=== PATIENT | male | born 1970 | race American Indian/Alaskan Native ===

== ENCOUNTER 2017-09-18 14:02 | Inpatient (IN) | payer MEDICARE, OTHER ==
[2017-09-18 14:08] VITALS: BMI 29.0
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
[2017-09-18 15:10] LABS: BASO # 0.02 K/mm3 (0.0-2.0); BASO % 0.3 % (0.0-3.0); EOS # 0.1 (0.0-0.7); EOS % 1.2 % (1.5-5.0); GRAN # 4.46 (1.4-6.5); GRAN % 66.3 % (50.0-68.0); HEMOGLOBIN 13.6 g/dL (14.0-18.0); LYMPH # 1.8 (1.2-3.4); LYMPH % 26.8 % (22.0-35.0); MEAN CELL VOLUME 86.3 fl (80.0-105.0); MEAN CORPUSCULAR HEMOGLOBIN 28.8 pg (25.0-35.0); MEAN CORPUSCULAR HGB CONC 33.3 g/dl (31.0-37.0); MEAN PLATELET VOLUME 9.5 fl (7.0-11.0); MONO # 0.4 (0.1-0.6); MONO % 5.4 % (1.0-6.0); RBC 4.73 10^6/uL (3.5-6.1); RED CELL DISTRIBUTION WIDTH 13.2 % (11.5-14.5); WHITE BLOOD COUNT 6.7 10^3/ul (4.5-11.0)
[2017-09-18 15:27] LABS: ALB/GLOB RATIO 1.2 (1.1-1.8); ALBUMIN 3.9 g/dL (3.0-4.8); ALT/SGPT 43 U/L (7-56); AST/SGOT 26 U/L (17-59); BLOOD UREA NITROGEN 13 mg/dL (7-21); CALCIUM 9.3 mg/dL (8.4-10.5); GFR AFRICAN-AMERICAN > 60; GFR NON-AFRICAN AMERICAN > 60
--- NOTE | 2017-09-18 15:28 | RAD ---
HISTORY: psych COMPARISON: No prior. FINDINGS: LUNGS: No active pulmonary disease. PLEURA: No significant pleural effusion identified, no pneumothorax apparent. CARDIOVASCULAR: Normal. OSSEOUS STRUCTURES: No significant abnormalities. VISUALIZED UPPER ABDOMEN: Normal. OTHER FINDINGS: None. IMPRESSION: No active disease. Concordant results with the preliminary interpretation rendered by the emergency department physician procedure.
[2017-09-18 15:32] LABS: ACETAMINOPHEN < 10.0 ug/ml (10.0-20.0); SALICYLATE < 1 mg/dL (2.0-20.0)
[2017-09-18 16:01] LABS: URINE BILIRUBIN NEGATIVE (NEGATIVE); URINE BLOOD NEGATIVE (NEGATIVE); URINE GLUCOSE (UA) 250 mg/dL (NEGATIVE); URINE LEUKOCYTE ESTERASE NEGATIVE Leu/uL (NEGATIVE); URINE NITRATE NEGATIVE (NEGATIVE); URINE PROTEIN NEGATIVE mg/dL (<30 mg/dL); URINE UROBILINOGEN 0.2 E.U./dL (<1 E.U./dL)
[2017-09-18 16:04] LABS: URINE APPEARANCE CLEAR (CLEAR); URINE COLOR YELLOW (YELLOW)
[2017-09-18 16:22] LABS: BARBITURATES, UR NEGATIVE (NEGATIVE); BENZODIAZEPINES, UR NEGATIVE (NEGATIVE); OPIATES, UR NEGATIVE (NEGATIVE); PHENCYCLIDINE, UR NEGATIVE (NEGATIVE)
--- NOTE | 2017-09-18 17:35 | CARD ---
APPROVED REPORT EKG Measurement Heart [id number] <Conclusion> Normal sinus rhythm ST elevation, consider early repolarization, pericarditis, or injury Nonspecific ST and T wave abnormality Abnormal ECG
--- NOTE | 2017-09-18 20:04 | ED PDOC ---
Physical Exam Vital Signs Reviewed: Yes Vital Signs Temp Pulse Resp BP Pulse Ox 09/19/17 06:07 98.4 F 78 17 130/79 100 09/19/17 00:00 84 16 128/76 99 09/18/17 18:02 98 F 90 18 133/76 98 09/18/17 14:20 98.0 F 110 H 18 136/80 97 Temperature: Afebrile Blood Pressure: Normal Pulse: Regular Respiratory Rate: Normal Appearance: Positive for: Well-Appearing Pain Distress: None Mental Status: Positive for: Alert and Oriented X 3 Finger Stick Blood Glucose: 253 Medical Decision Making ED Course and Treatment: 09/18/17 19:20 Patient signed out to me by Dr. Millan.Pt. with HX. of suicidal ideation/ auditory hallucinations.Medically cleared and evaluated by PES. Currently awaiting bed availability for admission.Pt. resting comfortably.No complaints. 1 09/19/17 06:50 Pt. resting comfortably.No complaints through the night.Still awaiting bed availability.Endorsed to . - Lab Interpretations Lab Results: 09/18/17 12:26 09/18/17 12:26 Lab Results 09/18/17 15:29: Urine Opiates Screen Negative, Urine Methadone Screen Negative, Ur Barbiturates Screen Negative, Ur Phencyclidine Scrn Negative, Ur Amphetamines Screen Negative, U Benzodiazepines Scrn Negative, U Oth Cocaine Metabols Negative, U Cannabinoids Screen Negative 09/18/17 15:29: Urine Color Yellow, Urine Appearance Clear, Urine pH 6.0, Ur Specific [place] 1.025, Urine Protein Negative, Urine Glucose (UA) 250 H, Urine Ketones Negative, Urine Blood Negative, Urine Nitrate Negative, Urine Bilirubin Negative, Urine Urobilinogen 0.2, Ur Leukocyte Esterase Negative 09/18/17 12:26: Alcohol, Quantitative < 10 09/18/17 12:26: Salicylates < 1 L, Acetaminophen < 10.0 L 09/18/17 12:26: Sodium 135, Potassium 4.2, Chloride 98, Carbon Dioxide 23, Anion Gap 18, BUN 13, Creatinine 0.7 L, Est GFR ( Amer) > 60, Est GFR ( Non-Af Amer) > 60, Random Glucose 250 H, Calcium 9.3, Total Bilirubin 0.2, AST 26, ALT 43, Alkaline Phosphatase 78, Total Protein 7.2, Albumin 3.9, Globulin 3.3, Albumin/Globulin Ratio 1.2 09/18/17 12:26: WBC 6.7, RBC 4.73, Hgb 13.6 L, Hct 40.8 L, MCV 86.3, MCH 28.8, MCHC 33.3, RDW 13.2, Plt Count 260, MPV 9.5, Gran % 66.3, Lymph % (Auto) 26.8, [place] % (Auto) 5.4, Eos % (Auto) 1.2 L, Baso % (Auto) 0.3, Gran # 4.46, Lymph # 1.8, [place] # 0.4, Eos # 0.1, Baso # 0.02 - RAD Interpretation Radiology Orders: 09/18/17 14:31 CXR [CHEST PORTABLE] [RAD] Stat Disposition/Present on Arrival - Present on Arrival Any Indicators Present on Arrival: No History of DVT/PE: No History of Uncontrolled Diabetes: No Urinary Catheter: No History of Decub. Ulcer: No History Surgical Site Infection Following: None - Disposition Have Diagnosis and Disposition been Completed?: No Diagnosis: Psychiatric care Disposition Time: 07:00 Patient Problems: Current Active Problems Problem Status Onset Psychiatric care Acute Condition: FAIR Referrals: Stellar Jonathan Realana, [Primary Care Provider] - Follow up with primary Forms: [employer] (Turkmen)
[2017-09-19 06:08] VITALS: O2SAT 100
--- NOTE | 2017-09-19 07:26 | ED PDOC ---
Physical Exam Vital Signs Reviewed: Yes Vital Signs Temp Pulse Resp BP Pulse Ox 09/19/17 06:07 98.4 F 78 17 130/79 100 09/19/17 00:00 84 16 128/76 99 09/18/17 18:02 98 F 90 18 133/76 98 09/18/17 14:20 98.0 F 110 H 18 136/80 97 Temperature: Afebrile Blood Pressure: Normal Pulse: Tachycardic Respiratory Rate: Normal Appearance: Positive for: Well-Appearing, Non-Toxic, Comfortable Pain Distress: None Mental Status: Positive for: Alert and Oriented X 3 Finger Stick Blood Glucose: 253 Medical Decision Making ED Course and Treatment: 09/19/17 07:24: Patient endorsed to me by Dr. Young. Pending psychiatric evaluation. CHEST X-RAY Dictator : Veto Reynaga MD Report Date : 09/18/2017 15:26:26 IMPRESSION:No active disease. Concordant results with the preliminary interpretation rendered by the emergency department physician\NOY at the conclusion of the procedure. 09/19/17 13:26 Patient was evaluated by Dr. Gonsales in the ED and PES. Patient was accepted and bed is available. He will be admitted to the psychiatric unit voluntarily. - Lab Interpretations Lab Results: 09/18/17 12:26 09/18/17 12:26 Lab Results 09/18/17 15:29: Urine Opiates Screen Negative, Urine Methadone Screen Negative, Ur Barbiturates Screen Negative, Ur Phencyclidine Scrn Negative, Ur Amphetamines Screen Negative, U Benzodiazepines Scrn Negative, U Oth Cocaine Metabols Negative, U Cannabinoids Screen Negative 09/18/17 15:29: Urine Color Yellow, Urine Appearance Clear, Urine pH 6.0, Ur Specific [place] 1.025, Urine Protein Negative, Urine Glucose (UA) 250 H, Urine Ketones Negative, Urine Blood Negative, Urine Nitrate Negative, Urine Bilirubin Negative, Urine Urobilinogen 0.2, Ur Leukocyte Esterase Negative 09/18/17 12:26: Alcohol, Quantitative < 10 09/18/17 12:26: Salicylates < 1 L, Acetaminophen < 10.0 L 09/18/17 12:26: Sodium 135, Potassium 4.2, Chloride 98, Carbon Dioxide 23, Anion Gap 18, BUN 13, Creatinine 0.7 L, Est GFR ( Amer) > 60, Est GFR ( Non-Af Amer) > 60, Random Glucose 250 H, Calcium 9.3, Total Bilirubin 0.2, AST 26, ALT 43, Alkaline Phosphatase 78, Total Protein 7.2, Albumin 3.9, Globulin 3.3, Albumin/Globulin Ratio 1.2 09/18/17 12:26: WBC 6.7, RBC 4.73, Hgb 13.6 L, Hct 40.8 L, MCV 86.3, MCH 28.8, MCHC 33.3, RDW 13.2, Plt Count 260, MPV 9.5, Gran % 66.3, Lymph % (Auto) 26.8, [place] % (Auto) 5.4, Eos % (Auto) 1.2 L, Baso % (Auto) 0.3, Gran # 4.46, Lymph # 1.8, [place] # 0.4, Eos # 0.1, Baso # 0.02 - RAD Interpretation Radiology Orders: 09/18/17 14:31 CXR [CHEST PORTABLE] [RAD] Stat - Scribe Statement The provider has reviewed the documentation as recorded by the Scribe Cinthya Blancas All medical record entries made by the Scribe were at my direction and personally dictated by me. I have reviewed the chart and agree that the record accurately reflects my personal performance of the history, physical exam, medical decision making, and the department course for this patient. I have also personally directed, reviewed, and agree with the discharge instructions and disposition. Disposition/Present on Arrival - Present on Arrival Any Indicators Present on Arrival: No History of DVT/PE: No History of Uncontrolled Diabetes: No Urinary Catheter: No History of Decub. Ulcer: No History Surgical Site Infection Following: None - Disposition Have Diagnosis and Disposition been Completed?: Yes Diagnosis: Psychiatric care Disposition: HOSPITALIZED Disposition Time: :26 Patient Plan: Admission Patient Problems: Current Active Problems Problem Status Onset Psychiatric care Acute Condition: FAIR
--- NOTE | 2017-09-19 17:20 | PCM.BM ---
<Issac Moffett - Last Filed: 09/19/17 17:19> Treatment Plan Problems - Problems identified on initial assessmt Command Hallucinations Date Initiated: 09/19/17 Time Initiated: 17:20 Assessment reference: NA Status: Active Priority: 1 Depression Date Initiated: 09/19/17 Time Initiated: 17:20 Assessment reference: NA Status: Active Priority: 2 Ineffective Coping Date Initiated: 09/19/17 Time Initiated: 17:20 Assessment reference: NA Status: Active Priority: 3 Treatment assets and liabiliti Patient Assests: adapts well, cooperative, self-reliant, ADL independent, good support system, negotiates basic needs Patient Liabilities: live alone, financial problems, poor support system, relationship conflicts, substance abuse - Milieu Protocol Maintain good personal hygiene: daily Encourage regular showers, daily Remind patient to perform daily oral care, daily Assist patient to perform ADL's Maintain personal safety: every shift Educate patient to report safety concerns to staff, every shift Monitor environment for contraband/sharps Medication safety: Monitor for expected outcome, potential side effects: every shift, Assess barriers to learning: every shift, Assess readiness for medication education: every shift Discharge/Continuing Care - Education Needs Education Needs: Patient Medication, Patient Diagnosis/Disease Process, Patient Coping Skills, Patient Personal Hygiene/Grooming, Patient Aftercare Safety Plan - Discharge Discharge Criteria: Tolerates medication w/o severe side effects, Normal sleep pattern, Ability to care for self, Reduction of target symptoms Discharge to:: Home <Francia Mccarthy - Last Filed: 09/20/17 14:59> Family Contact Family involvement: Famliy/SO not involved - Outside Agency [facility] involvment: Not involved <Stacie Amos - Last Filed: 09/20/17 19:12> - Diagnosis (1) Schizophrenia Status: Chronic Interventions: Psychoeducation/psychotherapy Psychopharmacology/adjustment of medications as needed/ monitoring possible side effects Evaluate pt on daily basis Compliance with medications and follow up appointments Long acting medication if pt is noncompliant with pill form Suicide and homicide risk assessment and prevention, coping strategies, safety plan Relapse prevention Reduction of symptoms Improve functional status Possible assertive community treatment Cognitive behavioral therapy Family involvement Possible social skill training as outpatient 09/20/17 18:25 (2) Cocaine abuse Status: Chronic Interventions: Psychoeducation Pharmacotherapy for alcohol/benzos/opioid dependence Maintaining sobriety Relapse prevention Possible rehabilitation Motivational interviewing 12-step programs: AA meetings 09/20/17 19:13 <Ellen Lofton - Last Filed: 09/21/17 11:00>
--- NOTE | 2017-09-20 03:45 | CON ---
DATE: 09/19/2017 The patient is being seen in consultation. PRESENTATION: The patient has seen and accompanied Dr. Gonsales by his bedside in the Emergency Room. He was brought to the Emergency Room for suicidal thoughts. He is hearing voices telling him to harm himself by cutting his wrist. He has been compliant with his psychiatric medications at home, however, he indicates that his voices today are quite severe. The patient has history of serious suicide attempts. He has attempted 3 times , the last time was 3 years ago. He overdosed on Tylenol and he cut his wrist. He indicates that he has no residual liver damage due to this. The patient currently lives with his sister and she is a support system. He grew up in [place] in [place]. He completed 2 years of high school and dropped out due to learning disability. He had a lot of difficulty in school. 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 He is on disability for his mental illness for number of years now. He has not had any mental healthcare in the last few years. His primary doctor has been giving him his medications. Later on in the conversation, it turns out he does see Dr. Ismael nath at [facility] for his medications. He indicates he is on Risperdal, Zoloft, and Cogentin and he has been compliant with taking these. He also has diabetes, which has not been taking care of. He indicates that he uses his sister's insulin. He will have a medical consult, when he comes to the floor. He has a history of drug use with cocaine being his of choice. He was 2 months clean and then 3 weeks ago he started using again. He denies any use of alcohol. There is no recent legal history. He was arrested once for possession and did 6 months in custodial for that 20 years ago. He has a 17-year-old daughter that is in care of her mother. He does keep in contact with her. They were for 6 years and that did not workout. He currently has a girlfriend. Client is one of 12 brothers and 4 sisters. He is number 4 of the group. His family history is positive for grandfather who is mentally ill on his paternal side. He indicates he is voluntary and willing to come into the hospital at this time. MENTAL STATUS EXAM: The patient is alert and oriented x3. He is a good historian. His eye contact is good. His behavior is pleasant and cooperative. His speech rate and volume are within normal limits. His mood is anxious. Affect is constricted. His thoughts are goal directed. He indicates that he is not suicidal and that he does not want to , however, his hallucinations are very loud and troublesome at this point in time telling him to hurt himself. He denies visual hallucinations. He denies the presence of any delusions or paranoia. His concentration and focus, he indicates are good. His memory, both short and long-term appears to be adequate. His appetite and his sleep have been disrupted. DIAGNOSTIC IMPRESSION: The patient indicates that he has a diagnoses of schizophrenia and diabetes. PLAN: The patient is voluntarily to sign into Psychiatric Unit here at [facility]. Said he will be transferred upstairs, as soon as the bed becomes available, which is anytime now. Thank you for this consult. Stacie Amos APN Aaron Gonsales MD MTDIgnacio
[2017-09-20 08:06] LABS: GLUCOSE,FASTING 210 mg/dL (65-110); HDL CHOLESTEROL 35 mg/dL (29-60)
[2017-09-20 08:17] LABS: LDL CHOLESTEROL 127 mg/dL (0-129)
[2017-09-20 08:22] LABS: FREE T4 0.81 ng/dL (0.78-2.19)
[2017-09-20] MEDS: Insulin Reg-LOW-Coverage SC SCH ×3 (12:21→21:35)
--- NOTE | 2017-09-20 13:08 | PN ---
DATE: LOCATION: Patient is in the Behavioral Care Unit, [facility]. SUBJECTIVE: This is a 46-year-old male. He was admitted with schizophrenia, agitation, he hears noises. Patient has past history of diabetes mellitus. Patient has history of hyperlipidemia and mild hypertension. Patient is seen this morning, I talked to him. He had no past history of any surgical intervention. Patient has a history of diabetes as he says. He has history of taking illegal drugs in the past, but he does not use them now. He does not take any alcohol either. He refuses to admit that he does take alcohol. He does not have any evidence at this point. He is able to answer questions. He states he hears voices. PHYSICAL EXAMINATION: VITAL SIGNS: Seen in this morning, his pulse is 80, blood pressure 121/76, his respirations are 20, O2 sat is 100% on room air. Patient's temperature is 97.9. HEENT: Head is normocephalic. NECK: Thyroid is not enlarged. No lymphadenopathy. Carotid pulses are present. HEART: Normal sinus rhythm. S1 and S2 present. The heart rate is 58. LUNGS: Trachea is central. Breath sounds vesicular. No adventitious sounds heard. CENTRAL NERVOUS SYSTEM: Patient is conscious, seemed to be rational on questioning, but excluding his history. He has no focal neurological deficits. DIAGNOSES: Hypertension, diabetes mellitus, hyperlipidemia. Patient has schizophrenia and the patient is getting medication and is being treated by the psychiatrist. His list of medication consists of Risperdal 3 mg b.i.d., Zoloft 100 mg daily. Patient is on benztropine which is Cogentin 1 mg p.o. b.i.d. We will follow up. His hemoglobin is 13.6. His differential is okay. Patient's chemistry shows blood sugar elevation of 250 mg. His current blood sugar is 192. His lipid profile, the [id number], total cholesterol 181. We will continue his medications and put him on metformin for diabetes and we will use Lipitor for hyperlipidemia. Patient has been taking medications for that and we will also use enalapril 5 mg daily for control of blood pressure and renal functions because of the diabetic state. His diet will be heart healthy, diabetic diet. We will continue to see the patient and follow up medically. Shira Molina MD [facility] # [id number] DESTINY
--- NOTE | 2017-09-20 18:34 | PCM.PSYCH ---
Initial Psychiatric Evaluation - Initial Psychiatric Evaluation Legal Status: Capacity Chief Complaint (in patient's own words): "I was hearing voices telling me to kill myself" Patient's Reaction to Hospitalization: Patient requested admission due to hearing voices telling him to cut his wrists. He has had 3 previous suicide attempts, the last being an overdose on Tylenol and cutting his wrist. Due to the severity of patients symptoms and aggressive/disorganized behavior , pt could not be maintained in an outpatient setting, needs further evaluation and stabilization in acute psychiatric unit. History of Present Illness and Precipitating Events: Patient is a 46 year old AA male who self referred to [facility] following being discharged form [facility] inpatient psychiatric unit where he had been since 09/05/2017. He is seen today in treatment team. Stresses contributing to this admission include the of his mother in June of 2017 from breast cancer. He is currently living in [place] with his sister. He was seeing a Dr Guevara at [facility] for outpatient treatment however he was not taking his medication which were Risperdal, Cogentin, and Zoloft. He has been hospitalized multiple times at [facility]. [place]. He had a suicide attempt 3 years ago where he overdosed on Tylenol and cut his wrist. He has no residual liver damage. His illness started n his 20's, and he also started using cocaine around the same time. He was in rehab one time and completed the [facility] program. He was sober for 3 years once [id number]. His last use was 3 weeks ago, before his [facility] admission. Patient was born in [place] and atteded school to the 9th grade. School was hard for him but he was not classified. 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 He was once, is now and has a 16 year old daughter with whom he does have contact. He was in prison once for 6 months for possession and has no record since. He denies any family history of mental health issues. Current Medications: Active Medications Generic Name Dose Route Start Last Admin Trade Name Freq PRN Reason Stop Dose Admin Atorvastatin Calcium 10 mg 09/20/17 17:00 09/20/17 17:38 Lipitor PO 10 mg DIN MAHESH Administration Benztropine Mesylate 1 mg 09/19/17 16:00 09/20/17 17:38 Cogentin PO 1 mg BID MAHESH Administration Insulin Human Regular 0 units 09/20/17 11:30 09/20/17 17:31 Humulin R Low SC 3 units ACHS MAHESH Administration Protocol Lisinopril 5 mg 09/21/17 08:00 Zestril PO DAILY MAHESH Metformin HCl 500 mg 09/20/17 09:00 09/20/17 17:38 Glucophage PO 500 mg BID MAHESH Administration Risperidone 3 mg 09/19/17 16:00 09/20/17 17:39 Risperdal Tab PO 3 mg BID MAHESH Administration Protocol Sertraline HCl 100 mg 09/20/17 08:00 09/20/17 09:04 Zoloft PO 100 mg DAILY MAHESH Administration Past Psychiatric History - Past Psychiatric History Previous Treatment History: Inpatient History of Abuse: Denied History of ETOH/Drug Use: Cocaine use since age 18, last use 3 weeks ago History of Family Illness: Denies Pertinent Medical Hx (Current Medical&Sleep Prob, Allergies): Allergies Allergy/AdvReac Type Severity Reaction Status Date / Time trazodone Allergy Intermediate Verified 09/05/17 13:20 shellfish derived Allergy Verified 09/05/17 13:21 Haldol 2 tab PO DAILY 09/05/17 Insulin Aspar/Insulin N 70/30 [Novolog MIX 70/30-U/ML 3ML] 35 unit SC BID Atorvastatin [Lipitor] 10 mg PO DIN #30 tab 09/10/17 Insulin Human (NPH)/Regular [Novolin 70/30 (70/30 units/ml) 10 ml] 55 units SC ACBD #33 ml 09/10/17 Lisinopril [Prinivil] 5 mg PO DAILY #30 tablet 09/10/17 Benztropine [Cogentin] 1 mg PO BID #60 tab 09/18/17 Sertraline [Zoloft] 100 mg PO DAILY #30 tab 09/18/17 risperiDONE [RisperDAL Tab] 3 mg PO BID #60 tab 09/18/17 Diabetes Review of Systems - Review of Systems Systems not reviewed;Unavailable: Psychotic - EENT Eyes: As Per HPI Ears: As Per HPI Nose/Mouth/Throat: As Per HPI - Cardiovascular Cardiovascular: As Per HPI - Respiratory Respiratory: As Per HPI - Gastrointestinal Gastrointestinal: As Per HPI - Genitourinary Genitourinary: As Per HPI - Reproductive: Male Reproductive:Male: As Per HPI - Musculoskeletal Musculoskeletal: As Par HPI - Integumentary Integumentary: As Per HPI - Neurological Neurological: As Per HPI - Psychiatric Psychiatric: As Per HPI - Endocrine Endocrine: As Per HPI - Hematologic/Lymphatic Hematologic: As Per HPI Mental Status Examination - Personal Presentation Personal Presentation: Looks stated age - Affect Affect: Blunted - Motor Activity Motor Activity: Calm - Reliability in Providing Information Reliability in Providing Information: Good - Speech Speech: Organized - Mood Mood: Depressed - Formal Thought Process Formal Thought Process: Hallucinations - Hallucinations/Delusions Hallucinations: Auditory - Obsessions/Compulsions Obsessions: None Compulsions: None - Cognitive Functions Orientation: Person, Place, Situation, Time Sensorium: Alert Attention/Concentration: Attentive Estimate of Intelligence: Average - Risk Risk: Suicidal - Strength & Assets Inventory Strength & Assets Inventory: Family support, Employment history, Cooperative - Limitations Additional comments: Recent relapse, recent hospitalization, current severe symptoms DSM 5 DX - DSM 5 DSM 5 Diagnosis: Schizophrenia Cocaine use disorder, chronic - Recommended/Plan of Treatment Treatment Recommendations and Plan of Treatment: Milieu/structure/supportive therapy Medical consult appreciated, see medical team note for more detailed info consultation for discharge plan and social issues Med management Family involvement Follow up on labs Will monitor closely evaluation for d/c planning Pt was educated about risk/benefits and alternatives of medications, coping strategies (safety plan, suicide prevention), relapse prevention, importance of follow up with psychiatrist and therapist, stay away from drugs/alcohol/smoking Projected ELOS: 09/27/2016 Prognosis: Guarded Discharge Plan and Discharge Criteria: Patient will no longer be suicidal, patient will no longer be hallucinating, patient will plan for abstinence, will no longer be in any imminent danger of hurting himself or others - Smoking Cessation Smoking Cessation Initiated: No Reason for not providing: Patient declined
[2017-09-21] MEDS: Insulin Reg-LOW-Coverage SC SCH ×4 (09:08→21:30)
[2017-09-21] MEDS: Insulin Human NPH/Reg 70/30 Vial(3 ml) SC SCH ×2 (09:09→17:36)
--- NOTE | 2017-09-21 09:35 | PN ---
DATE: LOCATION: The patient is in Behavioral Care Unit, [facility]. SUBJECTIVE: The patient was admitted with schizophrenia. The patient has uncontrolled diabetes and hypertension. He was seen this morning. I had a conversation with him. He states that he has been on insulin for awhile and he has this delusion where he is hearing messages that makes him very frightened; however, he seemed to be better this morning. PHYSICAL EXAMINATION: VITAL SIGNS: Pulse is 81, blood pressure is 127/79, and respirations are 20. The patient's O2 sat is 100% on room air. His temperature is 98.5. HEENT: Head is normocephalic. NECK: Thyroid is not enlarged. JVP is flat. LUNGS: Trachea is central. Breath sounds vesicular. No adventitious sounds. HEART: Normal sinus rhythm. S1 and S2 present. ABDOMEN: Soft. Liver and spleen not palpable. CENTRAL NERVOUS SYSTEM: The patient has no focal neurological deficits except behavioral disorder. LABORATORY DATA: The patient's hemoglobin is 13.6. His chemistry, the patient's sugar is elevated, is 250 today. MEDICATIONS: The patient is on lisinopril. The patient is on Zoloft. The patient is on Risperdal tablets and benztropine. PLAN: We will place him on his insulin 70/30 twice a day and we will monitor his sugar. His thyroid functions are normal. His diet is heart healthy diet. His overall condition is clinically stable. Shira Molina MD MTDD
--- NOTE | 2017-09-21 19:40 | PCM.PYCHPN ---
Psychiatric Progress Note - Psychiatric Progress Note Patient seen today, length of contact: 30 Patient Chief Complaint: "I am still hearing voices telling me to kill myself" Problems Identified/Issues Discussed: Patient indicates he is feeling better in terms of the voices decreasing, but they are still telling him to kill himself. He does not feel compelled to act on these and feels safe on the unit. He is medication compliant and cooperative with unit routines. Discussed his addiction and the impact on his mental health. Patient is willing to consider a rehab or IOP after discharge. Consult notes, labs and nursing notes reviewed. Medical Problems: Diabetes HTN Hypercholesteralemia Diagnostic Results: Laboratory Results - last 24 hr 09/20/17 09/21/17 09/21/17 21:21 07:49 11:53 POC Glucose (mg/dL) 250 H 211 H 181 H 09/21/17 16:07 POC Glucose (mg/dL) 280 H Temp Pulse Resp BP Pulse Ox 98.5 F 91 H 20 112/74 100 09/21/17 07:35 09/21/17 16:30 09/21/17 07:35 09/21/17 16:30 09/19/17 12:33 Medication Change: No Medical Record Reviewed: Yes Consults ordered or reviewed: Med consult per Dr Mason Mental Status Examination - Cognitive Function Orientation: Person, Place, Situation, Time Attention: Poor Concentration: Poor Association: WNL Fund of Knowledge: WNL - Mood Mood: Depressed - Affect Affect: Blunted - Speech Speech: Soft - Formal Thought Process Formal Thought Process: Hallucinations - Suicidal Ideation Suicidal Ideation: No - Homicidal Ideation Homicidal Ideation: No Goal/Treatment Plan - Goal/Treatment Plan Progress Toward Problem(s) and Goals/Treatment Plan: Milieu/structure/supportive therapy Medical consult appreciated, see medical team note for more detailed info SW consultation for discharge plan and social issues Med management Family involvement Follow up on labs Will monitor closely SW evaluation for d/c planning Pt was educated about risk/benefits and alternatives of medications, coping strategies (safety plan, suicide prevention), relapse prevention, importance of follow up with psychiatrist and therapist, stay away from drugs/alcohol/smoking Estimated Date of D/C: 09/28/11 - Smoking Cessation Smoking Cessation Initiated: No Reason for not providing: Patient not a smoker
--- NOTE | 2017-09-22 08:49 | PCM.PYCHPN ---
Psychiatric Progress Note - Psychiatric Progress Note Patient seen today, length of contact: 25 min Patient Chief Complaint: depressed and hopeless Problems Identified/Issues Discussed: I reviewed assessment and recent notes. Patient is oriented x3. Appearance is fairly groomed and he is in good control. He is sleepy this morning but able to respond to questioning relevantly and consistently. Patient continues to be depressed and hopeless. Denies suicidal thoughts and hallucinations have resolved. Patient's thought process is clear and he doesn't appear to be responding to internal stimuli. Affect is constricted but reactivity can be elicited. He is thankful for our help on the unit. Patient denies any new discomfort, pain or side effects. Slept well last night. Staff notes indicate that patient has been calm, isolative and withdrawn. There were no behavioral issues overnight. DSM 5 Symptoms Update: Schizophrenia Cocaine use disorder, chronic Medication Change: No Medical Record Reviewed: Yes Mental Status Examination - Cognitive Function Orientation: Person, Place, Situation, Time Attention: Poor Concentration: Poor Association: WNL Fund of Knowledge: WNL - Mood Mood: Depressed (depressed and hopeless) - Affect Affect: Constricted (constricted but reactivity can be elicited), Blunted - Speech Speech: Soft - Formal Thought Process Formal Thought Process: Hallucinations (denies) - Suicidal Ideation Suicidal Ideation: No - Homicidal Ideation Homicidal Ideation: No Goal/Treatment Plan - Goal/Treatment Plan Progress Toward Problem(s) and Goals/Treatment Plan: * c/w current tx and plan * Risperdal 3 mg po bid for disorganization * Cogentin 1 mg po bid for EPS prophylaxis * Zoloft 100 mg po daily for depression * No new weekend labs thus far * Vitals reviewed and noted below: Selected Entries 09/21/17 09/21/17 09/21/17 07:35 09:04 16:30 Temperature 98.5 F Pulse Rate 81 81 91 H Respiratory 20 Rate Blood Pressure 127/79 127/79 112/74 Estimated Date of D/C: 09/28/11
[2017-09-22] MEDS: Insulin Reg-LOW-Coverage SC SCH ×4 (09:09→22:00)
[2017-09-22] MEDS: Insulin Human NPH/Reg 70/30 Vial(3 ml) SC SCH ×2 (09:10→16:52)
--- NOTE | 2017-09-22 10:43 | PN ---
DATE: LOCATION: The patient is in Behavioral Care Unit, [facility] in [place]. SUBJECTIVE: The patient was admitted with schizophrenia. He has hypertension and diabetes mellitus. At present, he has no complaint today. He does not hear any noises today. PHYSICAL EXAMINATION: VITAL SIGNS: Pulse is 75, blood pressure is 113/77, and respirations are 20, O2 saturation is 99% on room air, and temperature is 97.8. HEENT: The patient's head is normocephalic. NECK: Thyroid is not enlarged. JVP is flat. Carotid pulses are present. LUNGS: Trachea is central. Breath sounds vesicular. No adventitious sounds. HEART: Normal sinus rhythm. S1 and S2 present. No murmurs. ABDOMEN: Soft. Liver and spleen are not palpable. CENTRAL NERVOUS SYSTEM: No cranial nerve abnormality. Motor sensory functions are within normal limits. IMPRESSION AND PLAN: The patient has behavioral disorder. He has been treated with insulin for diabetes and he gets lisinopril for blood pressure and Lipitor for hyperlipidemia. He is clinically improving and medically stable. We will continue current management and follow up medically. Shira Molina MD MTDD
[2017-09-23 07:21] VITALS: RESP 20
[2017-09-23] MEDS: Insulin Reg-LOW-Coverage SC SCH ×4 (08:31→21:54)
[2017-09-23] MEDS: Insulin Human NPH/Reg 70/30 Vial(3 ml) SC SCH ×2 (08:31→16:43)
--- NOTE | 2017-09-23 08:53 | PCM.PYCHPN ---
Psychiatric Progress Note - Psychiatric Progress Note Patient seen today, length of contact: 25 min Patient Chief Complaint: depressed Problems Identified/Issues Discussed: I reviewed recent notes and met with patient at bedside. He remains oriented x3. Appearance is fairly groomed and he is in good control. He is more alert this morning and able to respond to questioning relevantly and consistently. Patient continues to feel depressed. Denies suicidal thoughts. Patient reported auditory hallucinations to staff member yesterday however denied any perceptual disturbance to this provider. T He denies any auditory hallucinations this morning however admits to hearing a male voice call his name over and over yesterday. Patient's thought process is generally clear and he doesn't appear to be responding to internal stimuli. Affect is constricted but reactivity can be elicited. Thankful for our help on the unit. Patient denies any new discomfort, pain or side effects. Slept okay last night. Staff notes indicate that patient has been calm and preoccupied but visible on the unit. Verbalized awareness that his auditory hallucinations aren't real. There were no behavioral issues over the weekend. Diagnostic Results: Schizophrenia Cocaine use disorder, chronic Medication Change: No Medical Record Reviewed: Yes Mental Status Examination - Cognitive Function Orientation: Person, Place, Situation, Time Attention: Poor Concentration: Poor Association: WNL Fund of Knowledge: WNL - Mood Mood: Depressed (depressed ) - Affect Affect: Constricted (constricted but reactivity can be elicited), Blunted - Speech Speech: Soft - Formal Thought Process Formal Thought Process: Hallucinations (heard a male voice calling his name yesterday, denied any AH this morning) - Suicidal Ideation Suicidal Ideation: No - Homicidal Ideation Homicidal Ideation: No Goal/Treatment Plan - Goal/Treatment Plan Progress Toward Problem(s) and Goals/Treatment Plan: * c/w current tx and plan * Risperdal 3 mg po bid for disorganization * Cogentin 1 mg po bid for EPS prophylaxis * Zoloft 100 mg po daily for depression * Appreciate f/u by Dr. Molina on 09/22/17~c/w current treatment * No new weekend labs thus far * Vitals reviewed and noted below: Selected Entries 09/22/17 09/22/17 09/22/17 06:45 09:08 15:00 Temperature 97.8 F 97.6 F Pulse Rate 75 75 98 H Respiratory 20 18 Rate Blood Pressure 113/77 113/77 109/70 Estimated Date of D/C: 09/28/11
--- NOTE | 2017-09-23 11:47 | PN ---
DATE: SUBJECTIVE: The patient is a 46-year-old male. He is in Behavioral Care Unit, room 517, bed 2. He was admitted with schizophrenia. The patient had diabetes and hypertension. This morning, he had uncontrolled sugar level. Otherwise, he has no complaints. PHYSICAL EXAMINATION: VITAL SIGNS: Blood pressure is 122/78, respirations are 20, pulse is 73, and temperature is 98. HEENT: The patient's head is normocephalic. NECK: Thyroid is not enlarged. No lymphadenopathy. HEART: Normal sinus rhythm. S1 and S2 present. LUNGS: Trachea is central. Breath sounds vesicular. ABDOMEN: Soft. Liver and spleen are not palpable. No tenderness. No masses. 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 The patient has behavioral disturbance. MEDICATIONS: The patient is on Cogentin 1 mg b.i.d.. Insulin coverage for diabetes; we will have to increase the insulin, the 70/30 dose will be increased to 40 units. The patient is on Risperdal 3 mg b.i.d., lisinopril 5 mg daily, and Zoloft 100 mg daily. LABORATORY DATA: The patient's blood work remains stable on 09/18/2017 date. PLAN: We will continue current management medically and follow up on the medical condition, diabetes, and hypertension. Shira Molina MD MTDIgnacio
--- NOTE | 2017-09-24 08:55 | PN ---
DATE: LOCATION: The patient is in [facility], Behavioral Care Unit. SUBJECTIVE: The patient was admitted with schizophrenia. The patient has history of diabetes and hypertension. He was seen this morning. He is comfortable. Apparently, the patient has habit of eating snacks and his blood sugar is elevated in the mornings. PHYSICAL EXAMINATION: VITAL SIGNS: His pulse is 87, blood pressure is 124/70, respirations are 20, and temperature is 98. HEENT: The patient's head is normocephalic. NECK: Thyroid is not enlarged. JVP is flat. LUNGS: Trachea is central. Breath sounds vesicular. No adventitious sounds. HEART: Normal sinus rhythm. S1 and S2 present. ABDOMEN: Soft. Liver and spleen are not palpable. CENTRAL NERVOUS SYSTEM: No focal deficits are noted. MEDICATIONS: The patient's list of medication consist of Risperdal, Cogentin, insulin, lisinopril, and Zoloft. IMPRESSION AND PLAN: The patient is getting medication for hypertension and diabetes. He has been treated with insulin and the patient's diet is a diabetic diet, but the patient is noncompliant. We will continue current management and follow up. Shira Molina MD
[2017-09-24] MEDS: Insulin Reg-LOW-Coverage SC SCH ×4 (09:21→21:31)
[2017-09-24] MEDS: Insulin Human NPH/Reg 70/30 Vial(3 ml) SC SCH ×2 (09:21→16:20)
--- NOTE | 2017-09-24 10:49 | PCM.BM ---
<Issac Moffett - Last Filed: 09/24/17 10:48> Treatment Plan Problems - Problems identified on initial assessmt Command Hallucinations Date Initiated: 09/19/17 Time Initiated: :20 Assessment reference: NA Status: Active Priority: 1 Depression Date Initiated: 09/19/17 Time Initiated: 17:20 Assessment reference: NA Status: Active Priority: 2 Ineffective Coping Date Initiated: 09/19/17 Time Initiated: 17:20 Date resolved: 09/24/17 Assessment reference: NA Status: Active Priority: 3 Treatment assets and liabiliti Patient Assests: adapts well, cooperative, self-reliant, ADL independent, good support system, negotiates basic needs Patient Liabilities: live alone, financial problems, poor support system, relationship conflicts, substance abuse - Milieu Protocol Maintain good personal hygiene: daily Encourage regular showers, daily Remind patient to perform daily oral care, daily Assist patient to perform ADL's Maintain personal safety: every shift Educate patient to report safety concerns to staff, every shift Monitor environment for contraband/sharps Medication safety: Monitor for expected outcome, potential side effects: every shift, Assess barriers to learning: every shift, Assess readiness for medication education: every shift Milieu Narrative: * c/w current tx and plan * Risperdal 3 mg po bid for disorganization * Cogentin 1 mg po bid for EPS prophylaxis * Zoloft 100 mg po daily for depression * Appreciate f/u by Dr. Molina on 09/22/17~c/w current treatment * No new weekend labs thus far * Vitals reviewed and noted below: Selected Entries 09/22/17 09/22/17 09/22/17 06:45 09:08 15:00 Temperature 97.8 F 97.6 F Pulse Rate 75 75 98 H Respiratory 20 18 Rate Blood Pressure 113/77 113/77 109/70 Family Contact Family involvement: Famliy/SO not involved - Outside Agency [facility] involvment: Not involved Discharge/Continuing Care - Education Needs Education Needs: Patient Medication, Patient Diagnosis/Disease Process, Patient Coping Skills, Patient Personal Hygiene/Grooming, Patient Aftercare Safety Plan - Discharge Discharge Criteria: Tolerates medication w/o severe side effects, Normal sleep pattern, Ability to care for self, Reduction of target symptoms Discharge to:: Home - Treatment Team Participation Patient/Family/SO Statement: * c/w current tx and plan * Risperdal 3 mg po bid for disorganization * Cogentin 1 mg po bid for EPS prophylaxis * Zoloft 100 mg po daily for depression * Appreciate f/u by Dr. Molina on 09/22/17~c/w current treatment * No new weekend labs thus far * Vitals reviewed and noted below: Selected Entries 09/22/17 09/22/17 09/22/17 06:45 09:08 15:00 Temperature 97.8 F 97.6 F Pulse Rate 75 75 98 H Respiratory 20 18 Rate Blood Pressure 113/77 113/77 109/70 Treatment Plan Review - Problem Command Hallucinations Time Initiated: 17:20 Depression Time Initiated: 17:20 Ineffective Coping Time Initiated: 17:20 <Stacie Amos - Last Filed: 09/26/17 12:57> - Diagnosis (1) Schizophrenia Status: Chronic Interventions: Psychoeducation/psychotherapy Psychopharmacology/adjustment of medications as needed/ monitoring possible side effectsEvaluate pt on daily basis Compliance with medications and follow up appointments Long acting medication if pt is noncompliant with pill form Suicide and homicide risk assessment and prevention, coping strategies, safety plan Relapse prevention Reduction of symptoms Improve functional status Possible assertive community treatment Cognitive behavioral therapy Family involvement Possible social skill training as outpatient 09/26/17 12:57 (2) Cocaine abuse Status: Chronic Interventions: Monitoring withdrawal symptoms Medical detoxification Pharmacotherapy for alcohol/benzos/opioid dependence Maintaining sobriety Relapse prevention Possible rehabilitation Motivational interviewing 12-step programs: AA meetings 09/26/17 12:58 <Maci Frazier - Last Filed: 09/28/17 11:21> Family Contact Family involvement: Family/SO is involved Family contact: Family has been contacted by patient
--- NOTE | 2017-09-24 17:45 | PCM.PYCHPN ---
Psychiatric Progress Note - Psychiatric Progress Note Patient seen today, length of contact: 25 min Patient Chief Complaint: "I want to go to a rehab after this" Problems Identified/Issues Discussed: Patient indicates he is feeling better in terms of the voices decreasing, but they are still telling him to kill himself. He feels safe on the unit. He is willing to attend an inpatient rehab because he does not feel he can remain sober out of the hospital. Consult notes, labs and nursing notes reviewed. He is cooperative with the exception of his diabetic diet. He is not adherent, is snacking, and having elevated blood sugars as a result. Medical Problems: Diabetes HTN Hypercholesteralemia Diagnostic Results: Laboratory Results - last 24 hr 09/20/17 09/21/17 09/21/17 21:21 07:49 11:53 POC Glucose (mg/dL) 250 H 211 H 181 H 09/21/17 16:07 POC Glucose (mg/dL) 280 H Temp Pulse Resp BP Pulse Ox 98.5 F 91 H 20 112/74 100 09/21/17 07:35 09/21/17 16:30 09/21/17 07:35 09/21/17 16:30 09/19/17 12:33 Laboratory Results - last 24 hr 09/23/17 09/24/17 09/24/17 21:27 07:24 11:43 POC Glucose (mg/dL) 285 H 233 H 215 H 09/24/17 16:18 POC Glucose (mg/dL) 281 H Temp Pulse Resp BP Pulse Ox 98.0 F 105 H 20 125/92 H 100 09/23/17 07:00 09/24/17 16:30 09/23/17 07:00 09/24/17 16:30 09/19/17 12:33 Medication Change: No Medical Record Reviewed: Yes Mental Status Examination - Cognitive Function Orientation: Person, Place, Situation, Time Attention: Poor Concentration: Poor Association: WNL Fund of Knowledge: WNL - Mood Mood: Depressed (depressed ) - Affect Affect: Constricted (constricted but reactivity can be elicited), Blunted - Speech Speech: Soft - Formal Thought Process Formal Thought Process: Hallucinations (heard a male voice calling his name yesterday, denied any AH this morning) - Suicidal Ideation Suicidal Ideation: No - Homicidal Ideation Homicidal Ideation: No Goal/Treatment Plan - Goal/Treatment Plan Progress Toward Problem(s) and Goals/Treatment Plan: Milieu/structure/supportive therapy Medical consult appreciated, see medical team note for more detailed info SW consultation for discharge plan and social issues Med management Family involvement Follow up on labs Will monitor closely evaluation for d/c planning Pt was educated about risk/benefits and alternatives of medications, coping strategies (safety plan, suicide prevention), relapse prevention, importance of follow up with psychiatrist and therapist, stay away from drugs/alcohol/smoking Estimated Date of D/C: 09/28/11
[2017-09-25] MEDS: Insulin Reg-LOW-Coverage SC SCH (08:33)
[2017-09-25] MEDS: Pantoprazole 40 mg EC Tab PO SCH (08:33)
[2017-09-25] MEDS: Insulin Human NPH/Reg 70/30 Vial(3 ml) SC SCH ×2 (08:33→17:23)
[2017-09-25] MEDS: Insulin Lispro (humaLOG) MEDIUM Coverage SC SCH ×3 (11:27→22:09)
--- NOTE | 2017-09-25 21:54 | PN ---
DATE: 09/25/2017 SUBJECTIVE: The patient is seen in room 517, bed 2. The patient is ambulating in the hallway. The patient states that he is still having auditory and visual hallucination. Overnight nurse's notes were reviewed. The patient denies any suicidal or homicidal ideation. The patient admits auditory hallucinations. OBJECTIVE VITAL SIGNS: T-max 98.2; heart rate 82, 83, 87, 73, 98; blood pressure 108/62, 115/82, 125/92, 120/70; respiration 20; O2 saturation is 100%. HEENT: Head examination, normocephalic and atraumatic. HEENT examination shows pink conjunctivae. Anicteric sclerae, dry oral mucosa. NECK: No neck rigidity. CHEST: Examination symmetrical. LUNG: Examination shows no rales, crackles or wheezing. CARDIOVASCULAR: Examination S1, S2. No audible murmur, gallop or rub. ABDOMEN: Soft. Positive bowel sounds. GENITALIA: Male. RECTAL: Examination is deferred. EXTREMITY: Shows no pitting edema, no calf tenderness, no Homans' sign. MUSCULOSKELETAL: Examination shows elevated body mass index of 29. NEUROLOGIC: The patient is alert, awake, responsive, is able to move upper and lower extremity without assistance. GAIT: Examination is independent. VASCULAR: Examination palpable pulses. DIAGNOSTICS: The patient's fingerstick blood sugar is elevated at 249, 417, 218, 287, 281, 215, 233. Hemoglobin A1c is 10.9 which is high. Chest x-ray and EKG was reviewed. IMPRESSION AND PLAN: 1. Auditory hallucination. 2. Psychosis. 3. Obesity with elevated body mass index. 4. Mild normocytic anemia. 5. Hyperglycemia with uncontrolled insulin-requiring diabetes mellitus with hemoglobin A1c of 10.9. 6. Hypercholesterolemia with elevated LDL. 7. Glycosuria. 8. Left ventricular hypertrophy with questionable repolarization changes. 9. History of suicide attempt. 10. History of Tylenol overdose. 11. Schizophrenia. 12. Chronic cocaine use disorder. 13. History of depression. 14. Abnormal EKG. PLAN: At this time, the patient's current medications to be continued as follow, 1. Cogentin 1 mg twice a day. 2. Humalog sliding scale coverage medium dose a.c. and h.s. 3. The patient's basal insulin has been increased Humulin 70/30 to 35 units with breakfast and dinner. 4. The patient is on Lipitor 40 mg daily. 5. Nicotine patch 21 mg daily. 6. Protonix 40 mg daily. 7. Risperdal 3 mg twice day. 8. Zestril 5 mg daily. 9. Zoloft 100 mg daily. In addition, the patient has been ordered echo with Doppler for evaluation of abnormal EKG and questionable pericarditis. The patient at present was seen by the social professionals. The patient's case referred for inpatient rehab. The patient will be followed closely while the patient is in-house. Dictated and electronically signed, not read. Gallito Mason MD
--- NOTE | 2017-09-26 04:03 | PN ---
SUBJECTIVE: The patient is a 46-year-old -[place] male, who has been admitted with depression and auditory hallucinations. Patient is alert, oriented to 3 spheres, his affect appears to be constricted, but less so than previously. Patient's situation/case was discussed with staff who is aware that the patient may have an element of malingering and had recently been hospitalized at [facility] where he had expressed his intent to stay in another hospital. Patient here is calm and cooperative and his affect is congruent with his mood. He indicates that there has been significant abatement of his auditory hallucinations. I have reviewed his situation with social work. Patient is asking me now for an inpatient substance abuse rehab facility and is requesting to go to [facility]. He is refusing a referral for the [facility] where he had been previously complaining of the physical labors that are required at that facility. The patient is presently maintained on Cogentin 1 mg b.i.d., Risperdal 3 mg b.i.d., sertraline 100 mg per day along with Protonix 40 mg per day and Zestril 5 mg per day. PHYSICAL EXAMINATION VITAL SIGNS: Blood pressure 115/82, pulse 82, temperature 98.2, respiratory rate 20. Patient also has mild normocytic anemia and obesity with an elevated body mass index. He also has hypercholesterolemia with an elevated LDL and an abnormal EKG. Aaron Gonsales MD/ PhD
[2017-09-26] MEDS: Insulin Lispro (humaLOG) MEDIUM Coverage SC SCH ×5 (08:48→21:44)
[2017-09-26] MEDS: Insulin Human NPH/Reg 70/30 Vial(3 ml) SC SCH ×2 (08:52→17:42)
[2017-09-26] MEDS: Pantoprazole 40 mg EC Tab PO SCH (08:54)
[2017-09-26 09:55] LABS: BASO # 0.02 K/mm3 (0.0-2.0); BASO % 0.2 % (0.0-3.0); EOS # 0.2 (0.0-0.7); GRAN # 4.6 (1.4-6.5); GRAN % 56.8 % (50.0-68.0); HEMOGLOBIN 13.8 g/dL (14.0-18.0); LYMPH # 2.9 (1.2-3.4); LYMPH % 36.1 % (22.0-35.0); MEAN CORPUSCULAR HEMOGLOBIN 28.8 pg (25.0-35.0); MEAN CORPUSCULAR HGB CONC 33.5 g/dl (31.0-37.0); MEAN PLATELET VOLUME 9.4 fl (7.0-11.0); MONO # 0.4 (0.1-0.6); MONO % 4.9 % (1.0-6.0); RBC 4.79 10^6/uL (3.5-6.1); WHITE BLOOD COUNT 8.1 10^3/ul (4.5-11.0)
[2017-09-26 10:11] LABS: ALB/GLOB RATIO 1.3 (1.1-1.8); ALBUMIN 4.5 g/dL (3.0-4.8); ALT/SGPT 26 U/L (7-56); AST/SGOT 32 U/L (17-59); BILIRUBIN,DIRECT 0.4 mg/dL (0.0-0.4); BLOOD UREA NITROGEN 15 mg/dL (7-21); CALCIUM 9.9 mg/dL (8.4-10.5); GFR AFRICAN-AMERICAN > 60; GFR NON-AFRICAN AMERICAN > 60; MAGNESIUM 1.2 mg/dL (1.7-2.2); URIC ACID 6.3 mg/dL (3.5-8.5)
--- NOTE | 2017-09-26 13:27 | PN ---
DATE: 09/26/2017 SUBJECTIVE: The patient is an -[place] male with a prior history of substance abuse and mood disorder. He is alert, oriented to three spheres. He has improved affect, denies present auditory hallucinations, denies depressive or suicidal or homicidal thoughts. His clinical course has been one of improvement. He is looking to go to a rehabilitation facility. He is interacting well with his peers. His vital signs are stable. I have reviewed the patient's situation with social work who is presently attempting to get the patient to suitably housed in a rehabilitation facility. Aaron Gonsales MD/ PhD
[2017-09-26] MEDS: Magnesium Oxide 400 mg Tab UD PO SCH (17:39)
--- NOTE | 2017-09-26 20:05 | CARD ---
APPROVED REPORT EXAM: Two-dimensional and M-mode echocardiogram with Doppler and color Doppler. INDICATION Abnormal EKG/Arrhythmia Hypertension/HCVD R/O PERICARDITIS 2D DIMENSIONS Left Atrium (2D)3.9 (1.6-4.0cm)IVSd1.1 (0.7-1.1cm) LVDd4.2 (3.9-5.9cm)PWd1.1 (0.7-1.1cm) LVDs3.0 (2.5-4.0cm)FS (%) 29.8 % LVEF (%)57.3 (>50%) M-Mode DIMENSIONS Aortic Root3.40 (2.2-3.7cm)Aortic Cusp Exc.1.90 (1.5-2.0cm) Aortic Valve AoV Peak Drdzwizj600.0cm/Ricardo Peak GR.9mmHg Mitral Valve MV E Oupfvqgr54.6cm/sMV A Ywjtzieq04.7cm/sE/A ratio1.0 TDI Lateral E' Peak V11.60cm/sMedial E' Peak V8.48cm/sE/Lateral E'5.7 E/Medial E'7.7 Pulmonary Valve PV Peak Dtahzrew03.1cm/sPV Peak Grad.2mmHg Tricuspid Valve TR Peak Iqottyic595fm/sRAP [id number] Peak Gr.17mmHg [id number] LEFT VENTRICLE The left ventricle is normal size. There is normal left ventricular wall thickness. The left ventricular function is normal.EF-55-60% There is normal LV segmental wall motion. The left ventricular diastolic function is normal. No left ventricle thrombus noted on this study. There is no ventricular septal defect visualized. There is no left ventricular aneurysm. There is no mass noted in the left ventricle. RIGHT VENTRICLE The right ventricle is normal size. There is normal right ventricular wall thickness. The right ventricular systolic function is normal. ATRIA The left atrium size is normal. The right atrium size is normal. The interatrial septum is intact with no evidence for an atrial septal defect. AORTIC VALVE The aortic valve is thickened but opens well. No aortic regurgitation is present. There is no aortic valvular stenosis. There is no aortic valvular vegetation. MITRAL VALVE The mitral valve is thickened but opens well. Mitral regurgitation is trace. There is no mitral valve stenosis. There is no evidence of mitral valve prolapse. TRICUSPID VALVE The tricuspid valve leaflets are thickened , but open well. There is trace tricuspid regurgitation. There is no tricuspid valve stenosis. There is no tricuspid valve prolapse or vegetation. PULMONIC VALVE The pulmonary valve is normal in structure. There is no pulmonic valvular regurgitation. There is no pulmonic valvular stenosis. GREAT VESSELS The aortic root is normal in size. The ascending aorta is normal in size. The pulmonary artery is normal. The IVC is normal in size and collapses >50% with inspiration. PERICARDIAL EFFUSION There is no pleural effusion. There is no pericardial effusion. <Conclusion> normal chamber Size. EF-55-60% Trace MR/TR RVSP_27 mmof Hg.
[2017-09-26] MEDS ORDERED: Ergocalciferol 50,000 Intl Units Cap PO SCH (21:00)
--- NOTE | 2017-09-26 22:26 | PN ---
DATE: 09/26/2017 LOCATION: The patient was seen in room 517, bed 1. SUBJECTIVE: The patient is sitting up in the bed. The patient is alert, awake, and responsive. Overnight nurse's notes were reviewed. The patient was found to be compliant with medications. The patient was ambulating independently. The patient denies suicidal or homicidal ideation. Denies auditory or visual hallucination. The patient was seen by the web content & social media manager. The patient also was noted to be isolated and withdrawn as per the nurses. OBJECTIVE: VITAL SIGNS: T-max is 98.3, heart rate 82, 83, and 77, blood pressure 125/84,126/87, 108/62, respirations 20, and O2 sat is O2 sat is 99% to 100%. GENERAL: The patient is sitting up in the bed. HEENT: Head; normocephalic and atraumatic. HEENT examination shows pink conjunctivae. Anicteric sclerae. No oropharyngeal lesion. NECK: No neck rigidity. CHEST: Kyphosis. LUNGS: Shows no rales, crackles, or wheezing. CARDIOVASCULAR: S1 and S2, regular rhythm. Questionable soft systolic murmur right second intercostal space, left second intercostal space. ABDOMEN: Soft. Positive bowel sounds. No hepatosplenomegaly noted. No organomegaly noted. No costovertebral angle tenderness. GENITALIA: Male. RECTAL: Deferred. EXTREMITIES: Shows no pitting edema. No calf tenderness. No Homans' sign. MUSCULOSKELETAL: Shows a body mass index of 29. NEUROLOGIC: The patient is alert, awake, and oriented x3. Cranial nerves II-XII intact. No gross deficit noted. Motor strength is 5/5 in upper and lower extremity. DIAGNOSTIC DATA: On 09/26/2017; WBC 8.1, hemoglobin/hematocrit 13.8 and 41.2, and platelet 274. Sodium 139, potassium 4.3, chloride 98, CO2 of 27, anion gap 18, BUN 15, creatinine 0.6, GFR greater than 60, glucose 228, 235, and 278, and magnesium 1.2. LFTs are normal. Vitamin D 25-hydroxy 16.5. Echocardiogram shows ejection fraction of 57%. Aortic root dimension, aortic valve peak velocity was 9 mm. Right ventricular systolic pressure 27 mmHg, thickened aortic valve noted on the echo. Thickened mitral valve noted. Trace mitral regurgitation noted, thickened tricuspid valve noted. Ejection fraction was 55% to 60%. The patient seen by psychiatrist. Dr. Gonsales. IMPRESSION: 1. Psychosis. 2. Auditory hallucination. 3. Obesity with elevated body mass index. 4. normocytic anemia. 5. Hyperglycemia and uncontrolled diabetes with hemoglobin A1c of 11. 6. Hypomagnesemia. 7. Hypovitaminosis D. 8. Glycosuria 9. Thickened aortic valve, thickened mitral valve with trace mitral regurgitation and trace tricuspid regurgitation. PLAN: At this time, the patient is awaiting for rehab placement. CURRENT MEDICATIONS: The patient's current medications are: 1. Cogentin 1 mg twice a day. 2. Drisdol 50,000 units weekly. 3. Humalog medium dose sliding scale coverage a.c. and at bedtime. 4. The patient's insulin Humulin 70/30 was increased to 35 units with breakfast and dinner. 5. Lipitor 40 mg daily. 6. The patient started on magnesium oxide 400 mg twice a day. 7. Nicotine patch 21 mg daily. 8. Protonix 40 mg daily. 9. Risperdal 3 mg twice a day. 10. Zestril 5 mg daily. 11. Zoloft 100 mg daily. The patient is on diabetic diet.. The patient seen by the web content & social media manager. The patient's case was referred for rehab and psychiatric clearance for discharge to inpatient rehab. The patient otherwise is medically stable. The patient was advised outpatient followup. The patient's basal insulin doses will be adjusted to achieve normoglycemia. The patient's insulin Humulin 70/30 will be increased to 40 units with breakfast and 40 with dinner to achieve goal of blood glucose level. Dictated and electronically signed, not read. Gallito Mason MD
[2017-09-27] MEDS: Insulin Lispro (humaLOG) MEDIUM Coverage SC SCH ×4 (08:45→21:31)
[2017-09-27] MEDS: Pantoprazole 40 mg EC Tab PO SCH (08:49)
[2017-09-27] MEDS: Magnesium Oxide 400 mg Tab UD PO SCH ×2 (08:50→17:01)
[2017-09-27] MEDS: Insulin Human NPH/Reg 70/30 Vial(3 ml) SC SCH ×2 (08:52→17:00)
--- NOTE | 2017-09-27 10:56 | PCM.PYCHPN ---
Psychiatric Progress Note - Psychiatric Progress Note Patient seen today, length of contact: 25 min Patient Chief Complaint: "I am so happy that I am going to the rehab after this" Problems Identified/Issues Discussed: Patient indicates he is feeling better in terms of the voices decreasing, but they are no longer telling him to kill himself. His affect is improved. Patient is very pleased to be going to a drug rehab tomorrow, feels this is an opportunity to "get myself together". Patient's blood sugars have been running high, evidently patient likes to snack. Educated the patient as to the effect that high blood sugars can have on mental health. He continues to actively participate in unit activities. Medical Problems: Diabetes HTN Hypercholesteralemia Diagnostic Results: Laboratory Results - last 24 hr 09/20/17 09/21/17 09/21/17 21:21 07:49 11:53 POC Glucose (mg/dL) 250 H 211 H 181 H 09/21/17 16:07 POC Glucose (mg/dL) 280 H Temp Pulse Resp BP Pulse Ox 98.5 F 91 H 20 112/74 100 09/21/17 07:35 09/21/17 16:30 09/21/17 07:35 09/21/17 16:30 09/19/17 12:33 Laboratory Results - last 24 hr 09/23/17 09/24/17 09/24/17 21:27 07:24 11:43 POC Glucose (mg/dL) 285 H 233 H 215 H 09/24/17 16:18 POC Glucose (mg/dL) 281 H Temp Pulse Resp BP Pulse Ox 98.0 F 105 H 20 125/92 H 100 09/23/17 07:00 09/24/17 16:30 09/23/17 07:00 09/24/17 16:30 09/19/17 12:33 Laboratory Results - last 24 hr 09/26/17 09/26/17 09/26/17 09:00 11:33 16:40 POC Glucose (mg/dL) 235 H 228 H 25-OH Vitamin D Total 16.5 L 09/26/17 09/27/17 21:35 07:25 POC Glucose (mg/dL) 343 H 250 H 25-OH Vitamin D Total Temp Pulse Resp BP Pulse Ox 98.2 F 78 20 123/77 100 09/27/17 07:22 09/27/17 08:49 09/27/17 07:22 09/27/17 08:49 09/19/17 12:33 Medication Change: No Medical Record Reviewed: Yes Consults ordered or reviewed: Medical follow up per Dr Mason Mental Status Examination - Cognitive Function Orientation: Person, Place, Situation, Time Attention: WNL Concentration: WNL Association: WNL Fund of Knowledge: WNL - Mood Mood: Depressed (depressed ), Neutral - Affect Affect: Broad - Speech Speech: Soft - Formal Thought Process Formal Thought Process: Hallucinations (heard a male voice calling his name yesterday, denied any AH this morning) Additional comments: Patient indicates that his voices are decreased and no longer troublesome. - Suicidal Ideation Suicidal Ideation: No - Homicidal Ideation Homicidal Ideation: No Goal/Treatment Plan - Goal/Treatment Plan Need for Continued Stay: Remain at risks for inpatient hospitalization, Discharge may exacerbated symptoms, Severe functional impairment Progress Toward Problem(s) and Goals/Treatment Plan: Milieu/structure/supportive therapy Medical consult appreciated, see medical team note for more detailed info consultation for discharge plan and social issues Med management Family involvement Follow up on labs Will monitor closely evaluation for d/c planning Pt was educated about risk/benefits and alternatives of medications, coping strategies (safety plan, suicide prevention), relapse prevention, importance of follow up with psychiatrist and therapist, stay away from drugs/alcohol/smoking Estimated Date of D/C: 09/28/11 - Smoking Cessation Smoking Cessation Initiated: Yes
--- NOTE | 2017-09-27 19:16 | PN ---
DATE: 09/27/2017 SUBJECTIVE: The patient is seen in room 517, bed 2. The patient is seen lying in the bed and the patient was then sit up. The patient was seen in the room. Overnight nurse's notes were reviewed. There was no evidence of suicidal or homicidal ideation. No auditory, visual, tactile hallucinations noted. No chest pain. No shortness of breath. No nausea, vomiting, diarrhea, or constipation. No bleeding. OBJECTIVE: VITAL SIGNS: T-max 98.3, heart rate 78, blood pressure 123/77, 125/84, 126/87; respiration 20. HEENT: Head is normocephalic, atraumatic. Shows pink conjunctivae. Anicteric sclerae. No oropharyngeal lesion. NECK: No neck rigidity. No jugular venous distention. No carotid bruit. CHEST: Kyphosis. LUNGS: Shows no rales, crackles, or wheezing. CARDIOVASCULAR: S1, S2, regular rhythm. No audible murmur, gallop, or rub at this time. ABDOMEN: Soft. Positive bowel sounds. No hepatosplenomegaly noted. No organomegaly. No costovertebral angle tenderness. No guarding. No rigidity. No rebound tenderness. GENITALIA: Male. RECTAL: Deferred. EXTREMITIES: Shows no pitting edema, no calf tenderness, no Homans' sign. No clubbing, no cyanosis. MUSCULOSKELETAL: Shows a body mass index of 29. NEUROLOGIC: The patient is alert, awake, oriented x3. Cranial nerves II through XII intact. Gait examination is independent. VASCULAR: Palpate pulses. DIAGNOSTICS: None from 09/27/2017. Fingerstick blood sugar 251, 254, 253, , 288, 228, 235, 252, which is still elevated. IMPRESSION AND PLAN: 1. Psychosis. 2. Hallucination. 3. Schizophrenia. 4. Thickened aortic and mitral valve. 5. Trace mitral regurgitation and trace tricuspid regurgitation. 6. Hyperglycemia and uncontrolled diabetes mellitus with hemoglobin A1c of 11. 7. Mild normocytic anemia. 8. Hypercholesterolemia. 9. Glycosuria. 10. History of substance abuse and mood disorder. 11. Hypovitaminosis D. 12. Hypomagnesemia. 13. Nicotine dependence. 14. History of cocaine abuse, marijuana abuse, and alcohol abuse and smoking. 15. History of nicotine, alcohol, and polysubstance abuse. PLAN: At this time, the patient is medically clear for discharge to rehab. CURRENT MEDICATIONS: Cogentin 1 mg twice a day, Drisdol 50,000 units weekly, Humalog medium dose sliding scale coverage a.c. and at bedtime, Humulin 70/30 40 units with breakfast and dinner, Lipitor 40 mg daily, magnesium oxide 400 mg twice a day, nicotine patch 21 mg daily, Protonix 40 mg daily, Risperdal 3 mg twice a day, Zestril 5 mg daily, Zoloft 100 mg daily. At present, the patient is accepted to [facility]. The patient is going to be discharged on 09/28/2017. Dictated and electronically signed, not read. Gallito Mason MD
[2017-09-28 07:37] VITALS: PULSE 75; TEMP 98
[2017-09-28 07:39] VITALS: BP 125/74
[2017-09-28] MEDS: Insulin Human NPH/Reg 70/30 Vial(3 ml) SC SCH (08:18)
[2017-09-28] MEDS: Insulin Lispro (humaLOG) MEDIUM Coverage SC SCH (08:19)
[2017-09-28] MEDS: Magnesium Oxide 400 mg Tab UD PO SCH (08:20)
[2017-09-28] MEDS: Pantoprazole 40 mg EC Tab PO SCH (08:21)
--- NOTE | 2017-09-28 11:40 | PCM.PYCHDC ---
Mental Status Examination - Mental Status Examination Orientation: Person, Place, Situation, Time Memory: Intact Mood: Neutral Affect: Broad Speech: Appropriate Attention: WNL Concentration: WNL Association: WNL Fund of Knowledge: WNL Formal Thought Process: Hallucinations Description of patient's judgement and insight: Patient denies being suicidal or homicidal, appears in no imminent danger of hurting himself or others. Psychotic Thoughts and Behaviors: Patient continues to have hallucinations, however he hears them at baseline and is not troubled by them. They are no longer command, they are "background". Suicidal Ideation: No Current Homicidal Ideation?: No Discharge Summary - Discharge Note Reason for Hospitalization: Patient requested admission due to hearing voices telling him to cut his wrists. He has had 3 previous suicide attempts, the last being an overdose on Tylenol and cutting his wrist. Due to the severity of patients symptoms and aggressive/disorganized behavior , pt could not be maintained in an outpatient setting, needs further evaluation and stabilization in acute psychiatric unit. Laboratory Data: Abnormal Lab Results 09/27/17 09/27/17 09/27/17 11:32 15:58 21:19 POC Glucose (mg/dL) 254 H 251 H 364 H 09/28/17 07:30 POC Glucose (mg/dL) 281 H Laboratory Results - last 24 hr 09/27/17 09/27/17 09/27/17 11:32 15:58 21:19 POC Glucose (mg/dL) 254 H 251 H 364 H 09/28/17 07:30 POC Glucose (mg/dL) 281 H Temp Pulse Resp BP Pulse Ox 98.0 F 75 20 125/74 100 09/28/17 07:38 09/28/17 08:20 09/28/17 07:38 09/28/17 08:20 09/19/17 12:33 Consultations:: List each consultation separately and include: 1. Reason for request. 2. Findings. 3. Follow-up Consultations: Medical follow up per Dr Mason Summary of Hospital Course include:: 1. Description of specific treatment plan utilized for patients during their course of treatmen. 2. Summarize the time- course for resolution of acute symptoms and/or regressed behaviors. 3. Describe issues identified and worked on during hospitalization. 4. Describe medication utilized. 5. Describe medical problems identified and treated. 6. Reassessment of suicide risk Summary of Hospital Course: Patient is a 46 year old AA male who self referred to [facility] following being discharged form [facility] inpatient psychiatric unit where he had been since 09/05/2017. He is seen today in treatment team. Stresses contributing to this admission include the of his mother in June of 2017 from breast cancer. He is currently living in [place] with his sister. He was seeing a Dr Guevara at [facility] for outpatient treatment however he was not taking his medication which were Risperdal, Cogentin, and Zoloft. He has been hospitalized multiple times at [facility]. [place]. He had a suicide attempt 3 years ago where he overdosed on Tylenol and cut his wrist. He has no residual liver damage. His illness started n his 20's, and he also started using cocaine around the same time. He was in rehab one time and completed the [facility] program. He was sober for 3 years once [id number]. His last use was 3 weeks ago, before his [facility] admission. Patient was born in [place] and atteded school to the 9th grade. School was hard for him but he was not classified. 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 He was once, is now and has a 16 year old daughter with whom he does have contact. He was in custodial once for 6 months for possession and has no record since. He denies any family history of mental health issues. - Diagnosis (1) Schizophrenia Current Visit: No Status: Chronic Priority: Medium (2) Cocaine abuse Current Visit: Yes Status: Chronic Priority: High - Final Diagnosis (DSM 5) Condition upon Discharge: FAIR Disposition: HOME/ ROUTINE Follow-up Treatment Plan: Milieu/structure/supportive therapy Medical consult appreciated, see medical team note for more detailed info consultation for discharge plan and social issues Med management Family involvement Follow up on labs Will monitor closely evaluation for d/c planning Pt was educated about risk/benefits and alternatives of medications, coping strategies (safety plan, suicide prevention), relapse prevention, importance of follow up with psychiatrist and therapist, stay away from drugs/alcohol/smoking Patient will be going to [facility] for drug treatment/rehabilitation directly following this discharge. - Smoking Cessation Smoking Cessation Medication prescribed: Yes - Antipsychotic Medications Pt discharged on 2 or more routine antipsychotic medications: No
[2017-09-28] MEDS ORDERED: Insulin Lispro 1 UNITS/0.01 ML SC SCH ×2 (11:45→17:45)
--- NOTE | 2017-09-28 14:14 | PN ---
DATE: 09/28/2017 The patient is seen in room 517, bed 2. SUBJECTIVE: The patient is ambulating on the floor. Overnight nurse's notes were reviewed. The patient was independent. The patient's mood was calm. Affect was congruent. The patient is anticipating discharge to rehab. The patient appeared calm. OBJECTIVE: VITAL SIGNS: T-max 98, pulse 75, blood pressure 125/74, respirations 20. HEAD: Normocephalic, atraumatic. HEENT: Shows pink conjunctivae. Anicteric sclerae. No oropharyngeal lesion. No neck rigidity. No jugular venous distention. No carotid bruit. CHEST: Kyphosis. LUNGS: Shows occasional rhonchi upper lung an anteriorly, posteriorly which clears up with deep breathing and coughing. CARDIOVASCULAR: Shows S1, S2. Regular rhythm. No audible murmur, gallop, or rub. ABDOMEN: Soft. Positive bowel sound. No hepatosplenomegaly noted. No guarding. No rebound tenderness. No rigidity. No costovertebral angle tenderness. GENITALIA: Male. RECTAL: Examination is deferred. EXTREMITIES: Shows no pitting edema, no calf numbness, no Homans' sign. MUSCULOSKELETAL: Shows a body mass index of 29. Cranial nerves II through XII intact. Gait examination is independent. VASCULAR: Palpable pulses. PSYCHIATRIC: As per psychiatrist note. DIAGNOSTICS: None from today. Fingerstick blood sugar 281, 364, 251, 254, 250, 343, 228. The patient's fingerstick blood sugar is elevated. IMPRESSION AND PLAN: 1. Hyperglycemia with uncontrolled insulin-requiring diabetes mellitus with hemoglobin A1c of 11 and fructosamine of 350. 2. History of hypertension, hypercholesteremia. 3. Psychosis. 4. Schizophrenia. 5. Depression. 6. History of suicidal attempt. 7. Hypovitaminosis D. 8. Hypercholesteremia with elevated LDL. 9. Hypomagnesemia. 10. Nicotine dependence. 11. History of nicotine, alcohol, and polysubstance abuse and dependence. PLAN: At this time, the patient is currently awaiting acceptance into rehab. The patient's current revised medications are as follows: Cogentin 1 mg twice a day, Drisdol 50,000 units weekly. The patient has also started on short-acting Lexapro insulin with Humalog 5 units with breakfast, 5 units with lunch, and 5 units with dinner. The patient is on Humalog medium sliding scale. The patient is on insulin, Humulin 70/30 40 units with breakfast and dinner, Lipitor 40 mg daily, magnesium oxide 400 mg twice a day, nicotine patch 21 mg daily, Protonix 40 mg daily, Risperdal 3 mg twice a day, Zestril 5 mg daily, Zoloft 100 mg daily. The patient is anticipated to be discharged to [facility]. The patient was advised, and I have given my business card to the patient to an advised followup in the office within 1 week after discharge from the acute rehab. Dictated and electronically signed, not read. Gallito Mason MD
[2017-09-29] MEDS ORDERED: Insulin Lispro 1 UNITS/0.01 ML SC SCH (07:30)
== END 2017-09-28 12:14 | disposition home or self-care (01) | DRG 885 ==
LOC: ED 14:02 → ERH 09-19 13:37 → PSYC 09-19 14:43
PROVIDERS: ADMIT Psychiatry & Neurology Addiction Medicine; ATTEND Psychiatry & Neurology Addiction Medicine
DX: F20.9 Schizophrenia, unspecified (principal); E11.65 Type 2 diabetes mellitus with hyperglycemia; I11.9 Hypertensive heart disease without heart failure; I08.1 Rheumatic disorders of both mitral and tricuspid valves; F14.10 Cocaine abuse, uncomplicated; F91.9 Conduct disorder, unspecified; D64.9 Anemia, unspecified; E78.00 Pure hypercholesterolemia, unspecified; F32.9 Major depressive disorder, single episode, unspecified; E55.9 Vitamin D deficiency, unspecified; F17.200 Nicotine dependence, unspecified, uncomplicated; F12.10 Cannabis abuse, uncomplicated; R94.31 Abnormal electrocardiogram [ECG] [EKG]; E66.9 Obesity, unspecified; Z68.29 Body mass index [BMI] 29.0-29.9, adult; Z79.4 Long term (current) use of insulin; Z91.5 Personal history of self-harm; Z91.19 Patient's noncompliance with other medical treatment and regimen